=== PATIENT | male | born 1990 ===

== ENCOUNTER 2018-07-21 14:48 | Inpatient (IN) | payer MEDICAID ==
--- NOTE | 2018-07-21 16:14 | ED PDOC ---
HPI: Psych/Substance Abuse Time Seen by Provider: 07/21/18 15:53 Chief Complaint (Nursing): Psychiatric Evaluation Chief Complaint (Provider): Suicidal thoughts History Per: Patient History/Exam Limitations: no limitations Onset/Duration Of Symptoms: Days (today) Additional Complaint(s): Mom with pt. Pt. had suicidal thoughts per mom. Pt. denies. Not homicidal. No drugs, etoh, or did/took anything to hurt self. No weakness, headaches, chest pain, dyspnea, abd pain. Past Medical History Reviewed: Nursing Documentation, Vital Signs Vital Signs: Last Vital Signs Temp 99 F 07/21/18 15:27 Pulse 93 H 07/21/18 15:27 Resp 16 07/21/18 15:27 BP 139/99 H 07/21/18 15:27 Pulse Ox 96 07/21/18 15:27 - Medical History PMH: Depression - Surgical History Surgical History: No Surg Hx - Family History Family History: States: Unknown Family Hx - Living Arrangements Living Arrangements: With Family - Social History Alcohol: None Drugs: Denies - Immunization History Hx Tetanus Toxoid Vaccination: No Hx Influenza Vaccination: No Hx Pneumococcal Vaccination: No - Allergies Allergies/Adverse Reactions: Allergies Allergy/AdvReac Type Severity Reaction Status Date / Time No Known Allergies Allergy Verified 06/12/18 09:44 Review of Systems ROS Statement: Except As Marked, All Systems Reviewed And Found Negative Psych: Positive for: Suicidal ideation Physical Exam - Reviewed Nursing Documentation Reviewed: Yes - Physical Exam Appears: Positive for: Non-toxic, No Acute Distress Head Exam: Positive for: ATRAUMATIC, NORMAL INSPECTION, NORMOCEPHALIC Skin: Positive for: Normal Color, Warm, DRY Eye Exam: Positive for: EOMI, Normal appearance, PERRL ENT: Positive for: Normal ENT Inspection Neck: Positive for: Normal, Painless ROM Cardiovascular/Chest: Positive for: Regular Rate, Rhythm Respiratory: Positive for: CNT, Normal Breath Sounds Gastrointestinal/Abdominal: Positive for: Normal Exam, Soft. Negative for: Tenderness Back: Positive for: Normal Inspection. Negative for: L CVA Tenderness, R CVA Tenderness Extremity: Positive for: Normal ROM. Negative for: Tenderness, Pedal Edema Neurologic/Psych: Positive for: Alert, bus driver II-XII, Oriented. Negative for: Mo tor/Sensory Deficits - Laboratory Results Result Diagrams: 07/21/18 16:49 07/21/18 16:49 Interpretation Of Abn Labs: cannabis - ECG O2 Sat by Pulse Oximetry: 96 Pulse Ox Interpretation: Normal - Progress ED Course And Treament: 1800: Dr. Ku to take over care. Fu on crisis. Medically stable for crisis eval. Disposition - Clinical Impression Clinical Impression: Adjustment disorder - Patient ED Disposition Is Patient to be Admitted: Transfer of Care - Disposition Disposition Time: 18:04 Condition: STABLE Patient Signed Over To: Praveen Ku
[2018-07-21 16:59] LABS: BASO # 0.1 K/uL (0.0-0.2); BASO % 1.2 % (0.0-2.0); EOS # 0.2 K/uL (0.0-0.7); EOS % 1.8 % (0.0-4.0); HEMOGLOBIN 15.4 g/dL (12.0-18.0); LYMPH # 1.7 K/uL (1.0-4.3); MEAN CELL VOLUME 90.9 fl (80.0-94.0); MEAN CORPUSCULAR HEMOGLOBIN 30.3 pg (27.0-31.0); MEAN CORPUSCULAR HGB CONC 33.3 g/dL (33.0-37.0); MONO # 0.3 K/uL (0.0-0.8); MONO % 3.7 % (0.0-10.0); NEUT # 6.5 K/uL (1.8-7.0); NEUT % 74.3 % (50.0-75.0); NRBC % 0.2 % (0.0-0.0); RBC 5.09 Mil/uL (4.40-5.90); WHITE BLOOD COUNT 8.7 K/uL (4.8-10.8)
[2018-07-21 17:00] LABS: URINE BILIRUBIN NEGATIVE (NEGATIVE); URINE BLOOD NEGATIVE (NEGATIVE); URINE CLARITY CLEAR (Clear); URINE COLOR STRAW (YELLOW); URINE GLUCOSE (UA) NEG (NEGATIVE); URINE LEUKOCYTE ESTERASE NEG Leu/uL (Negative); URINE PROTEIN NEGATIVE (NEGATIVE); URINE UROBILINOGEN 0.2-1.0 mg/dL (0.2-1.0)
[2018-07-21 17:26] LABS: ACETAMINOPHEN < 10.0 ug/ml (10.0-30.0); ALB/GLOB RATIO 1.3 (1.0-2.1); ALBUMIN 4.7 g/dL (3.5-5.0); ALT/SGPT 27 U/L (21-72); AST/SGOT 27 U/L (17-59); BLOOD UREA NITROGEN 6 mg/dl (9-20); CALCIUM 9.8 mg/dL (8.4-10.2); GFR NON-AFRICAN AMERICAN > 60; SALICYLATE < 1.0 mg/dl
[2018-07-21 17:37] LABS: BARBITURATES, UR NEGATIVE (NEGATIVE); BENZODIAZEPINES, UR NEGATIVE (NEGATIVE); OPIATES, UR NEGATIVE (NEGATIVE); PHENCYCLIDINE, UR NEGATIVE (NEGATIVE)
[2018-07-21 20:18] VITALS: O2SAT 98
[2018-07-21] MEDS ORDERED: DiphenhydrAMINE 50 mg/ml Inj IM PRN (23:23)
[2018-07-21] MEDS ORDERED: Alum-Mag Hydrox-Simethicone Susp (30 mL) PO PRN (23:23)
[2018-07-21] MEDS ORDERED: Magnesium Hydroxide Susp 30 ml UD PO PRN (23:23)
--- NOTE | 2018-07-21 23:49 | PCM.BM ---
<Les Mock - Last Filed: 07/21/18 23:47> Treatment Plan Problems - Problems identified on initial assessmt Suicidal Ideation Date Initiated: 07/21/18 Time Initiated: 23:47 Assessment reference: NA Status: Active Priority: 1 Commad/Auditory Hallucinations Date Initiated: 07/21/18 Time Initiated: 23:48 Assessment reference: NA Status: Active Priority: 2 High Risk: Violence Date Initiated: 07/21/18 Time Initiated: 23:48 Assessment reference: NA Status: Active Priority: 3 Altered Sleep Pattern Date Initiated: 07/21/18 Time Initiated: 23:49 Assessment reference: NA Status: Active Priority: 4 Treatment assets and liabiliti Patient Assests: adapts well, ADL independent, physically healthy, good support system, negotiates basic needs, cognitively intact Patient Liabilities: financial problems, substance abuse (Marijuana abuse) - Milieu Protocol Maintain good personal hygiene: daily Encourage regular showers, daily Remind patient to perform daily oral care, daily Assist patient to perform ADL's Maintain personal safety: every shift Educate patient to report safety concerns to staff, every shift Monitor environment for contraband/sharps Medication safety: Monitor for expected outcome, potential side effects: every shift, Assess barriers to learning: every shift, Assess readiness for medication education: every shift <Evelin Cheng - Last Filed: 07/25/18 10:31> Treatment assets and liabiliti Patient Assests: adapts well, cooperative, insightful, motivated, resourceful, self-reliant Patient Liabilities: financial problems (Pt. last employed 1 week ago resulting in financial strain) Family Contact Family involvement: Family/SO is involved Family contact: Patient agrees to contact, Family has been contacted by patient, Telephone contact initiated by staff - Goals for Treatment Patient goals for treatment: Patient to continue stabilization on 3NP through medication management and group/supportive therapy to address sxs of depression and anxiety and eliminate AH/VH and SI. Patient to be encouraged to attend grou ps regularly to promote self-awareness, sobriety, and improve insight, compliance, coping skills and self-esteem. Patient to be provided with referral for appropriate level of aftercare to reduce risk of future hospitalizations and ensure safety in the community. Pt. identified wanted to be referred to outpatient mental health/substance abuse services to address depression and anxiety leading to marijuana use and hospitalizations as tx goal. Discharge/Continuing Care - Education Needs Education Needs: Patient Medication, Patient Diagnosis/Disease Process, Patient Coping Skills, Patient Community resources - Discharge Discharge Criteria: Tolerates medication w/o severe side effects, Free of Suicidal thoughts, Free of paranoid thoughts, Free of agitation, Normal sleep pattern, Ability to care for self Discharge to:: Home, With Family - Treatment Team Participation Patient/Family/SO Statement: 07/25/18 10:36 Patient attended tx team on 07/24 to discuss progress on 3NP and tx goals. Pt. reported improvement in sxs of depression since admission. Pt. reported better sleep. Pt. continued to report feelings of sadness, guilt, and anger. Pt. denied SI/HI and was able to contract for safety. Pt. presented with depressed affect and fair eye contact. Pt. presents as ambivalent regarding precursors to hospitalization. Pt. superficially motivated for tx but agreeable to outpatient mental health referrals. Pt. somewhat socially withdrawn but visible on 3NP and is able to appropriately socialize with peers with prompting. Was Patient/Family/SO present at Treatment Team Meeting: Yes <Keith Lambert - Last Filed: 07/25/18 12:07> - Diagnosis (1) Cannabis abuse Status: Acute Interventions: motivational interviewing 07/25/18 12:07
--- NOTE | 2018-07-22 08:38 | PCM.PSYCH ---
Initial Psychiatric Evaluation - Initial Psychiatric Evaluation Type of Admission: Voluntary Legal Status: Guardian Chief Complaint (in patient's own words): i dont know Patient's Reaction to Hospitalization: pt is upset. History of Present Illness and Precipitating Events: This is the ist 3NP admission for this 28 yr old male who lives with mother ,has h/o schizoafffective disorder currently off meds brought by mother because of ot presenting with bizarre behavior ,talking to self and hearing voices telling him to jump off the building where he lives and pt also reported that he walked [facility] a [facility] ago to kill himself and has been very depressed .pt signed in fir admission but when told that mother could not go upstairs to unit with him he became very agitated and violent and threatening staff carrying tge oxygen cylinder and restrained and given prn meds and brought to unit after stabilization. Current Medications: Active Medications Generic Name Dose Route Start Last Admin Trade Name Freq PRN Reason Stop Dose Admin Acetaminophen 650 mg 07/21/18 23:23 Tylenol 325mg Tab PO Q4 PRN for 4-7 pain Al Hydrox/Mg Hydrox/Simethicone 30 ml 07/21/18 23:23 Maalox Plus 30 Ml PO Q4 PRN Dyspepsia Diphenhydramine HCl 50 mg 07/21/18 23:23 Benadryl IM Q6 PRN Extrapyramidal S/S Unable PO Diphenhydramine HCl 50 mg 07/21/18 23:23 Benadryl PO Q6 PRN Extrapyramidal Symptoms Diphenhydramine HCl 50 mg 07/21/18 23:23 Benadryl PO HS PRN Sleep Haloperidol 5 mg 07/21/18 23:23 Haldol PO Q4 PRN Agitation Haloperidol Lactate 5 mg 07/21/18 23:23 Haldol IM Q4 PRN Agitation, Unable to Take PO Lorazepam 2 mg 07/21/18 23:23 Ativan IM Q6 PRN Anxiety/Agitation,Unable PO Lorazepam 1 mg 07/21/18 23:23 Ativan PO Q6 PRN Anxiety/Agitation Magnesium Hydroxide 30 ml 07/21/18 23:23 Milk Of Magnesia PO HS PRN Constipation Past Psychiatric History - Past Psychiatric History Previous Treatment History: None History of Abuse: denies History of ETOH/Drug Use: denies History of Family Illness: not reported. Pertinent Medical Hx (Current Medical&Sleep Prob, Allergies): Allergies Allergy/AdvReac Type Severity Reaction Status Date / Time No Known Allergies Allergy Verified 06/12/18 09:44 No Known Home Med 07/21/18 none Review of Systems - Review of Systems All systems: reviewed and no additional remarkable complaints except Mental Status Examination - Personal Presentation Personal Presentation: Looks stated age - Affect Affect: Flat - Motor Activity Motor Activity: Psychomotor Agitation - Reliability in Providing Information Reliability in Providing Information: Poor, due to alteration in thoughts - Speech Speech: Disorganized - Mood Mood: Anxious - Formal Thought Process Formal Thought Process: Hallucinations, Paranoia - Hallucinations/Delusions Hallucinations: Auditory - Obsessions/Compulsions Obsessions: No Compulsions: No - Cognitive Functions Orientation: Person, Place, Situation Sensorium: Alert Attention/Concentration: Easily distracted Abstract Thinking: [place] Estimate of Intelligence: Average Judgement: Imparied, as evidence by: Poor judgement, Imparied, as evidence by: Lack of insight into illness Memory: Recent intact, as evidence by: Ability to recall events of the day, Remote intact, as evidenced by: Other - Strength & Assets Inventory Strength & Assets Inventory: Family support DSM 5 DX - DSM 5 DSM 5 Diagnosis: Schizoaffective disorder,bipolar type - Recommended/Plan of Treatment Treatment Recommendations and Plan of Treatment: pt has agreed to start risperdal 0.5 mg bid and cogentin 0.5 mg hs . sparkle engage pt in therapy and closely monitor for aggressive behaviors,. hospitalist consult,.
--- NOTE | 2018-07-22 11:54 | CP.PCM.CON ---
History of Present Illness - History of Present Illness History of Present Illness: 28 yo male with history of schizoaffective DO admitted to psyche unit because of bizzare behaviour and auditory hallucination. Review of Systems - Review of Systems All systems: reviewed and no additional remarkable complaints except (aside from those mentioned above, 12 point system review were negative by me) Past Patient History - Infectious Disease Hx of Infectious Diseases: None - Tetanus Immunizations Tetanus Immunization: Unknown - Past Social History Smoking Status: Never Smoked Chewing Tobacco Use: No Cigar Use: No Alcohol: None Drugs: Denies - CARDIAC Hx Cardiac Disorders: No Hx Hypertension: No - PULMONARY Hx Tuberculosis: No - NEUROLOGICAL HX Cerebrovascular Accident: No Hx Seizures: No - HEMATOLOGICAL/ONCOLOGICAL Hx Cancer: No Hx Human Immunodeficiency Virus (HIV): No - GENITOURINARY/GYNECOLOGICAL Hx Sexually Transmitted Disorders: No - PSYCHIATRIC Hx Substance Use: Yes (MARIJUANA) - SURGICAL HISTORY Hx Surgeries: No - ANESTHESIA Hx Anesthesia: No Meds Allergies/Adverse Reactions: Allergies Allergy/AdvReac Type Severity Reaction Status Date / Time No Known Allergies Allergy Verified 06/12/18 09:44 - Medications Medications: Current Medications Acetaminophen (Tylenol 325mg Tab) 650 mg PO Q4 PRN PRN Reason: for 4-7 pain Al Hydrox/Mg Hydrox/Simethicone (Maalox Plus 30 Ml) 30 ml PO Q4 PRN PRN Reason: Dyspepsia Benztropine Mesylate (Cogentin) 0.5 mg PO HS ABHILASH Diphenhydramine HCl (Benadryl) 50 mg IM Q6 PRN PRN Reason: Extrapyramidal S/S Unable PO Diphenhydramine HCl (Benadryl) 50 mg PO Q6 PRN PRN Reason: Extrapyramidal Symptoms Diphenhydramine HCl (Benadryl) 50 mg PO HS PRN PRN Reason: Sleep Haloperidol (Haldol) 5 mg PO Q4 PRN PRN Reason: Agitation Haloperidol Lactate (Haldol) 5 mg IM Q4 PRN PRN Reason: Agitation, Unable to Take PO Lorazepam (Ativan) 2 mg IM Q6 PRN PRN Reason: Anxiety/Agitation,Unable PO Lorazepam (Ativan) 1 mg PO Q6 PRN PRN Reason: Anxiety/Agitation Magnesium Hydroxide (Milk Of Magnesia) 30 ml PO HS PRN PRN Reason: Constipation Risperidone (Risperdal Tab) 0.5 mg PO BID ON LICENSE OF [facility] Last Admin: 07/22/18 09:34 Dose: 0.5 mg Physical Exam - Constitutional Appears: No Acute Distress - Head Exam Head Exam: ATRAUMATIC - Eye Exam Eye Exam: absent: Scleral icterus - ENT Exam ENT Exam: Mucous Membranes Moist - Neck Exam Neck exam: Negative for: Meningismus - Respiratory Exam Respiratory Exam: absent: Rales, Rhonchi, Wheezes, Respiratory Distress - Cardiovascular Exam Cardiovascular Exam: REGULAR RHYTHM, +S1, +S2 - GI/Abdominal Exam GI & Abdominal Exam: Soft. absent: Tenderness - Rectal Exam Rectal Exam: Deferred - Extremities Exam Extremities exam: Negative for: pedal edema - Back Exam Back exam: NORMAL INSPECTION - Neurological Exam Neurological exam: Alert, Oriented x3 - Psychiatric Exam Psychiatric exam: Normal Affect - Skin Skin Exam: Dry, Intact Results - Vital Signs Recent Vital Signs: Last Vital Signs Temp 97.5 F L 07/22/18 09:00 Pulse 91 H 07/22/18 09:00 Resp 18 07/22/18 09:00 BP 143/89 07/22/18 09:00 Pulse Ox 98 07/21/18 22:07 - Labs Result Diagrams: 07/21/18 16:49 07/21/18 16:49 Labs: Laboratory Results - last 24 hr 07/21/18 07/21/18 07/21/18 16:49 16:49 16:49 WBC RBC Hgb Hct MCV MCH MCHC RDW Plt Count MPV Neut % (Auto) Lymph % (Auto) [place] % (Auto) Eos % (Auto) Baso % (Auto) Neut # (Auto) Lymph # (Auto) [place] # (Auto) Eos # (Auto) Baso # (Auto) Sodium 142 Potassium 3.7 Chloride 109 H Carbon Dioxide 25 Anion Gap 12 BUN 6 L Creatinine 0.8 Est GFR ( Amer) > 60 Est GFR (Non-Af Amer) > 60 Random Glucose 87 Calcium 9.8 Total Bilirubin 0.6 AST 27 ALT 27 Alkaline Phosphatase 88 Total Protein 8.4 H Albumin 4.7 Globulin 3.7 Albumin/Globulin Ratio 1.3 Urine Color Urine Clarity Urine pH Ur Specific [place] Urine Protein Urine Glucose (UA) Urine Ketones Urine Blood Urine Nitrate Urine Bilirubin Urine Urobilinogen Ur Leukocyte Esterase Urine RBC (Auto) Urine Microscopic WBC Salicylates < 1.0 Urine Opiates Screen Negative Urine Methadone Screen Negative Acetaminophen < 10.0 L Ur Barbiturates Screen Negative Ur Phencyclidine Scrn Negative Ur Amphetamines Screen Negative U Benzodiazepines Scrn Negative U Oth Cocaine Metabols Negative U Cannabinoids Screen Positive H Alcohol, Quantitative < 10 HIV-1 Ab Rapid Screen 07/21/18 07/21/18 07/21/18 16:49 16:49 22:00 WBC 8.7 RBC 5.09 Hgb 15.4 Hct 46.3 MCV 90.9 MCH 30.3 MCHC 33.3 RDW 13.0 Plt Count 197 MPV 10.0 Neut % (Auto) 74.3 Lymph % (Auto) 19.0 L [place] % (Auto) 3.7 Eos % (Auto) 1.8 Baso % (Auto) 1.2 Neut # (Auto) 6.5 Lymph # (Auto) 1.7 [place] # (Auto) 0.3 Eos # (Auto) 0.2 Baso # (Auto) 0.1 Sodium Potassium Chloride Carbon Dioxide Anion Gap BUN Creatinine Est GFR ( Amer) Est GFR (Non-Af Amer) Random Glucose Calcium Total Bilirubin AST ALT Alkaline Phosphatase Total Protein Albumin Globulin Albumin/Globulin Ratio Urine Color Straw Urine Clarity Clear Urine pH 8.0 Ur Specific [place] 1.010 Urine Protein Negative Urine Glucose (UA) Neg Urine Ketones Negative Urine Blood Negative Urine Nitrate Negative Urine Bilirubin Negative Urine Urobilinogen 0.2-1.0 Ur Leukocyte Esterase Neg Urine RBC (Auto) < 1 Urine Microscopic WBC < 1 Salicylates Urine Opiates Screen Urine Methadone Screen Acetaminophen Ur Barbiturates Screen Ur Phencyclidine Scrn Ur Amphetamines Screen U Benzodiazepines Scrn U Oth Cocaine Metabols U Cannabinoids Screen Alcohol, Quantitative HIV-1 Ab Rapid Screen Non reactive Assessment & Plan (1) Bizarre behavior Status: Acute Comment: psyche is managing
--- NOTE | 2018-07-23 13:25 | PCM.PYCHPN ---
Psychiatric Progress Note - Psychiatric Progress Note Patient seen today, length of contact: pt seen and evaluated Patient Chief Complaint: pt has been less paranoid and less delusional but still internally oreo upied and with limited insight regarding his psych illness and need further stabil ization with meds. Problems Identified/Issues Discussed: psychosis,schizoaffective disorder Medication Change: No Medical Record Reviewed: Yes Mental Status Examination - Cognitive Function Orientation: Person, Place, Situation Attention: Poor Concentration: Poor Association: WNL Fund of Knowledge: WNL - Mood Mood: Anxious - Affect Affect: Flat - Formal Thought Process Formal Thought Process: Hallucinations, Paranoia - Suicidal Ideation Suicidal Ideation: No - Homicidal Ideation Homicidal Ideation: No Goal/Treatment Plan - Goal/Treatment Plan Progress Toward Problem(s) and Goals/Treatment Plan: pt has agreed to start risperdal 0.5 mg bid and cogentin 0.5 mg hs . sparkle engage pt in therapy and closely monitor for aggressive behaviors,. hospitalist consult,.
[2018-07-24 08:11] LABS: HEPATITIS B SURFACE AG Negative (NEGATIVE)
[2018-07-24 08:16] LABS: HEPATITIS A IGM NEGATIVE (NEGATIVE); HEPATITIS B CORE AB NEGATIVE (NEGATIVE)
[2018-07-24 08:28] LABS: HEPATITIS C ANTIBODY NEGATIVE (NEGATIVE)
--- NOTE | 2018-07-24 13:28 | PCM.PYCHPN ---
Psychiatric Progress Note - Psychiatric Progress Note Patient seen today, length of contact: pt evaluated discussed with team chart reviewed Patient Chief Complaint: I get depressed and anxious so I start using Problems Identified/Issues Discussed: pt evaluated with treatment team, reported clearing off of the paranoid delusions and the auitory hallucinations, pt identifing depression an anxiety as triggers for using cannabis, motivational therapy provided, discussed referral to outpatient therapy, pt denied any current active thoughts of self harm, denied command hallucinations DSM 5 Symptoms Update: cannabis induced psychotic disorder depression generalized anxiety Medication Change: No Medical Record Reviewed: Yes Mental Status Examination - Cognitive Function Orientation: Person, Place, Situation Attention: WNL Concentration: WNL Association: WNL Fund of Knowledge: WNL - Mood Mood: Anxious - Affect Affect: Flat - Speech Speech: Soft - Formal Thought Process Formal Thought Process: Hallucinations, Paranoia - Suicidal Ideation Suicidal Ideation: No - Homicidal Ideation Homicidal Ideation: No Goal/Treatment Plan - Goal/Treatment Plan Need for Continued Stay: Severe depression anxiety, Discharge may exacerbated symptoms Progress Toward Problem(s) and Goals/Treatment Plan: risperidone 0.5mg bid start lexapro motivational group and supportive therapy
[2018-07-24 16:48] VITALS: RESP 18
--- NOTE | 2018-07-25 12:27 | PCM.PYCHDC ---
Mental Status Examination - Mental Status Examination Orientation: Person, Place, Situation Memory: Intact Mood: Neutral Affect: Broad Speech: Appropriate Attention: WNL Concentration: WNL Association: WNL Fund of Knowledge: WNL Formal Thought Process: No Impairment Description of patient's judgement and insight: partial insight, fair judgment Psychotic Thoughts and Behaviors: pt denied any current psychotic symptoms, non elicited Suicidal Ideation: No Discharge Summary - Discharge Note Reason for Hospitalization: This is the ist 3NP admission for this 28 yr old male who lives with mother ,has h/o schizoafffective disorder currently off meds brought by mother because of ot presenting with bizarre behavior ,talking to self and hearing voices telling him to jump off the building where he lives and pt also reported that he walked into [facility] a week ago to kill himself and has been very depressed .pt signed in fir admission but when told that mother could not go upstairs to unit with him he became very agitated and violent and threatening staff carrying tge oxygen cylinder and restrained and given prn meds and brought to unit after s tabilization. Consultations:: List each consultation separately and include: 1. Reason for request. 2. Findings. 3. Follow-up Summary of Hospital Course include:: 1. Description of specific treatment plan utilized for patients during their course of treatmen. 2. Summarize the time- course for resolution of acute symptoms and/or regressed behaviors. 3. Describe issues identified and worked on during hospitalization. 4. Describe medication utilized. 5. Describe medical problems identified and treated. 6. Reassessment of suicide risk Summary of Hospital Course: pt on admission presented with paranoid delusions and depression, pt was placed on risperidone and lexapro pt showed clearing off of the paranoid delusiona motivational therapy was provided in reference to cannabis use and ite effect on current mental status pt was compliant with treatment, no reported side effects of medications on discharge , mental status was stable, pt denied any current suicidal or homicidal ideation denied perceptual disturbances follow up arranged by social psychologist at [facility] outpatient - Diagnosis (1) Cannabis abuse Current Visit: Yes Status: Acute - Final Diagnosis (DSM 5) Condition upon Discharge: STABLE DSM 5: generalized anxiety depression cannabis induced psychotic disorder Disposition: HOME/ ROUTINE Follow-up Treatment Plan: risperidone 0.5mg bid start lexapro motivational group and supportive therapy Prescriptions/Medication Reconciliation: Benztropine [Cogentin] 0.5 mg PO HS 30 Days #30 tab Escitalopram [Lexapro] 10 mg PO DAILY 30 Days #30 tab risperiDONE [RisperDAL Tab] 0.5 mg PO BID 30 Days #60 tab - Antipsychotic Medications Pt discharged on 2 or more routine antipsychotic medications: No
[2018-07-25 17:56] VITALS: BP 137/76; PULSE 79; TEMP 97.8
== END 2018-07-25 18:05 | disposition home or self-care (01) | DRG 756 ==
LOC: H.ER 14:48 → H.ERHOLD 18:42 → H.PSYCH 23:20
PROVIDERS: ADMIT Psychiatry & Neurology Psychiatry; ATTEND Psychiatry & Neurology Psychiatry
PROC: GZHZZZZ Group Psychotherapy (ICD-10-PCS; principal; 2018-07-21)
PROC: GZ56ZZZ Individual Psychotherapy, Supportive (ICD-10-PCS; 2018-07-21)
PROC: HZ57ZZZ Individual Psychotherapy for Substance Abuse Treatment, Motivational Enhancement (ICD-10-PCS; 2018-07-21)
DX: F41.1 Generalized anxiety disorder (principal); R45.851 Suicidal ideations; F12.150 Cannabis abuse with psychotic disorder with delusions; F32.9 Major depressive disorder, single episode, unspecified

== ENCOUNTER 2018-10-12 15:00 | Inpatient (IN) | payer MEDICAID ==
[2018-10-12 15:07] VITALS: O2SAT 99
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
[2018-10-12 17:48] LABS: BASO # 0.1 K/uL (0.0-0.2); EOS # 0.2 K/uL (0.0-0.7); EOS % 2.7 % (0.0-4.0); HEMOGLOBIN 15.4 g/dL (12.0-18.0); LYMPH # 2.3 K/uL (1.0-4.3); LYMPH % 28.5 % (20.0-40.0); MEAN CELL VOLUME 90.9 fl (80.0-94.0); MEAN CORPUSCULAR HEMOGLOBIN 30.6 pg (27.0-31.0); MEAN CORPUSCULAR HGB CONC 33.7 g/dL (33.0-37.0); MEAN PLATELET VOLUME 9.6 fl (7.2-11.7); MONO # 0.4 K/uL (0.0-0.8); MONO % 5.1 % (0.0-10.0); NEUT % 62.7 % (50.0-75.0); NRBC % 0.1 % (0.0-0.0); RBC 5.03 Mil/uL (4.40-5.90); RED CELL DISTRIBUTION WIDTH 13.1 % (11.5-14.5)
[2018-10-12 18:15] LABS: ALB/GLOB RATIO 1.4 (1.0-2.1); ALBUMIN 4.7 g/dL (3.5-5.0); ALT/SGPT 29 U/L (21-72); AST/SGOT 28 U/L (17-59); BLOOD UREA NITROGEN 10 mg/dl (9-20); CALCIUM 10.1 mg/dL (8.4-10.2); GFR NON-AFRICAN AMERICAN > 60
[2018-10-12 18:17] LABS: BARBITURATES, UR NEGATIVE (NEGATIVE); BENZODIAZEPINES, UR NEGATIVE (NEGATIVE); OPIATES, UR NEGATIVE (NEGATIVE); PHENCYCLIDINE, UR NEGATIVE (NEGATIVE)
[2018-10-12 19:46] LABS: URINE BACTERIA RARE (<OCC); URINE BILIRUBIN NEGATIVE (NEGATIVE); URINE BLOOD NEGATIVE (NEGATIVE); URINE CLARITY SLIGHTY-CLOUDY (Clear); URINE COLOR AMBER (YELLOW); URINE GLUCOSE (UA) NEG (NEGATIVE); URINE LEUKOCYTE ESTERASE NEG Leu/uL (Negative); URINE PROTEIN 30 mg/dL (NEGATIVE); URINE UROBILINOGEN 0.2-1.0 mg/dL (0.2-1.0)
[2018-10-12] MEDS ORDERED: Magnesium Hydroxide Susp 30 ml UD PO PRN (21:18)
[2018-10-12] MEDS ORDERED: DiphenhydrAMINE 50 mg/ml Inj IM PRN (21:18)
[2018-10-12] MEDS ORDERED: Alum-Mag Hydrox-Simethicone Susp (30 mL) PO PRN (21:18)
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
[2018-10-13] MEDS ORDERED: Risperidone M TAB 2 MG PO STA (11:05)
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
--- NOTE | 2018-10-13 18:53 | CARD ---
APPROVED REPORT Date of service: 10/12/2018 EKG Measurement Heart [id number] <Conclusion> Normal sinus rhythm with sinus arrhythmia Normal ECG
[2018-10-13] MEDS ORDERED: Risperidone M TAB 2 MG PO SCH (22:00)
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
[2018-10-14] MEDS ORDERED: Risperidone M tab 1 MG PO SCH (09:00)
[2018-10-14] MEDS: Risperidone M TAB 2 MG PO SCH (21:23)
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
[2018-10-15] MEDS: Risperidone M TAB 2 MG PO SCH ×2 (09:06→21:14)
[2018-10-16] MEDS: Risperidone M TAB 2 MG PO SCH ×2 (09:16→21:07)
--- NOTE | 2018-10-16 13:41 | PCM.PYCHPN ---
Psychiatric Progress Note - Psychiatric Progress Note Patient seen today, length of contact: Pt evaluated, chart reviewed Patient Chief Complaint: I want to leave now Problems Identified/Issues Discussed: pt on evaluation angry, irritable , , labile , disorganized thought process internally preoccupied, requesting to be discharged, when he was told he needs to continue with treatment he started banging gross , cursing and threatening towards staff,, pt continues to be paranoid , verbally and physically threatening continues to be danger to self and others Medical Problems: hx of one previous hospitalization, pt non compliant DSM 5 Symptoms Update: schizophrenia paranoid type Medication Change: Yes (Increase Risperdal) Medical Record Reviewed: Yes Mental Status Examination - Cognitive Function Orientation: Person, Place, Situation, Time Memory: Intact Attention: WNL Concentration: Poor Association: Loose Fund of Knowledge: Poor Decription of patient's judgement and insights: poor insight and judgment - Mood Mood: Anxious, Neutral Additional comments: angry - Affect Additional comments: labile domineering threatening - Speech Speech: Appropriate, Loud - Formal Thought Process Formal Thought Process: Delusions, Paranoia, Other (Thought blocking) - Suicidal Ideation Suicidal Ideation: No - Homicidal Ideation Homicidal Ideation: Yes Goal/Treatment Plan - Goal/Treatment Plan Need for Continued Stay: Remain at risks for inpatient hospitalization, Discharge may exacerbated symptoms Progress Toward Problem(s) and Goals/Treatment Plan: pt requesting to be discharged, continues to be psychotic paranoid , banging gross, verbally and physically threatening towards staff pt has no insight into illness will be referred for screening for involuntary admission for continuity of care increase risperidone 2mg daily and 4mg qhs monitor for psychopharmacological effects and side effect profile psycheducation for compliance with possible starting risperidone consta
[2018-10-16 17:44] VITALS: RESP 18
[2018-10-16] MEDS: Divalproex 500 mg DR(BID formulation) PO SCH (17:53)
[2018-10-17] MEDS ORDERED: Risperidone M TAB 2 MG PO SCH (09:00)
[2018-10-17] MEDS: Divalproex 500 mg DR(BID formulation) PO SCH (09:29)
--- NOTE | 2018-10-17 14:17 | PCM.PYCHPN ---
Psychiatric Progress Note - Psychiatric Progress Note Patient seen today, length of contact: Pt evaluated, chart reviewed Patient Chief Complaint: I need to get out of here Problems Identified/Issues Discussed: pt on evaluation continues to be angry, irritable ,guarded paranoid floridly psychotic, no insight into illness , disorganized thought process , internally preoccupied, requesting to be discharged, , verbally and physically threatening continues to be danger to self and others Medical Problems: hx of one previous hospitalization, pt non compliant DSM 5 Symptoms Update: schizophrenia paranoid type Medication Change: Yes (increase depakote ) Medical Record Reviewed: Yes Mental Status Examination - Cognitive Function Orientation: Person, Place, Situation, Time Memory: Intact Attention: WNL Concentration: Poor Association: Loose Fund of Knowledge: Poor Decription of patient's judgement and insights: poor insight and judgment - Mood Mood: Anxious, Neutral - Affect Affect: Constricted - Speech Speech: Appropriate, Loud - Formal Thought Process Formal Thought Process: Delusions, Paranoia, Other (Thought blocking) - Suicidal Ideation Suicidal Ideation: No - Homicidal Ideation Homicidal Ideation: Yes Goal/Treatment Plan - Goal/Treatment Plan Need for Continued Stay: Remain at risks for inpatient hospitalization, Discharge may exacerbated symptoms Progress Toward Problem(s) and Goals/Treatment Plan: pt requesting to be discharged, continues to be psychotic paranoid , banging gross, verbally and physically threatening towards staff pt has no insight into illness , referred for screening for involuntary admission , accepted and awaiting bed risperidone 2mg daily and 4mg qhs depakote 500mg daily and 750mg qhs monitor for psychopharmacological effects and side effect profile
--- NOTE | 2018-10-17 15:34 | PCM.PYCHDC ---
Mental Status Examination - Mental Status Examination Orientation: Person, Place, Situation Mood: Anxious Affect: Constricted Speech: Loud Attention: WNL Concentration: Poor Association: Loose Fund of Knowledge: Poor Formal Thought Process: Hallucinations, Delusions, Paranoia Description of patient's judgement and insight: poor insight and judgment Suicidal Ideation: No Current Homicidal Ideation?: Yes Discharge Summary - Discharge Note Reason for Hospitalization: pt is 28 ys old male with previous psychiatric diagnosis of schizoaffective disorder, brought to ER by police after exhibiting disorganized and paranoid behaviour in the community pt has been discharged from hospital in August, since then non compliant with medication or follow up , has been increasingly paranoid 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, patient on day of evaluation, had paranoid delusions towards a stranger believing he hurt his daughter so he followed him till his home and was physically aggressive towards him on the unit patient is guarded evasive poor eye contact, reported delusions of reference stating that other patient are talking about him, verbalizing delusions of persecution feeling he is being targeted on the unit, pt presenting with thought blocking, irritable and labile affect denied command hallucinations, denied current suicidal or homicidal ideation, de nied any recent substance use, urine toxicology is negative Consultations:: List each consultation separately and include: 1. Reason for request. 2. Findings. 3. Follow-up Summary of Hospital Course include:: 1. Description of specific treatment plan utilized for patients during their course of treatmen. 2. Summarize the time- course for resolution of acute symptoms and/or regressed behaviors. 3. Describe issues identified and worked on during hospitalization. 4. Describe medication utilized. 5. Describe medical problems identified and treated. 6. Reassessment of suicide risk Summary of Hospital Course: pt i on admission was paranoid , agitated started on risperidone and depakote pt requested to be discharged, continued to be psychotic paranoid , banging gross, verbally and physically threatening towards staff pt had no insight into illness was referred for screening for involuntary admission for continuity of care, pt was accepted for involuntary admisssion - Diagnosis (1) Schizophrenia Current Visit: Yes Status: Acute (2) Poor compliance with medication Current Visit: Yes Status: Acute - Final Diagnosis (DSM 5) Condition upon Discharge: FAIR DSM 5: schizophrenia paranoid type Disposition: DISCHARGE TO [facility] Follow-up Treatment Plan: pt requesting to be discharged, continues to be psychotic paranoid , banging gross, verbally and physically threatening towards staff pt has no insight into illness , referred for screening for involuntary admission , accepted and awaiting bed risperidone 2mg daily and 4mg qhs depakote 500mg daily and 750mg qhs monitor for psychopharmacological effects and side effect profile - Antipsychotic Medications Pt discharged on 2 or more routine antipsychotic medications: No
[2018-10-17 18:00] VITALS: BP 112/74; PULSE 94; TEMP 97.2
[2018-10-17] MEDS: Risperidone M TAB 2 MG PO SCH (20:59)
[2018-10-17] MEDS ORDERED: Divalproex 250 mg DR(BID formulation) PO SCH (22:00)
[2018-10-18] MEDS ORDERED: Divalproex 500 mg DR(BID formulation) PO SCH (09:00)
== END 2018-10-17 23:03 | DRG 750 ==
LOC: H.ER 15:00 → H.ERHOLD 17:14 → H.PSYCH 21:11
PROVIDERS: ADMIT Psychiatry & Neurology Psychiatry; ATTEND Psychiatry & Neurology Psychiatry
PROC: GZHZZZZ Group Psychotherapy (ICD-10-PCS; principal; 2018-10-12)
DX: F20.0 Paranoid schizophrenia (principal); Z91.14 Patient's other noncompliance with medication regimen; Z91.19 Patient's noncompliance with other medical treatment and regimen